=== PATIENT | male | born 1970 | race Caucasian/White ===

== ENCOUNTER 2018-02-05 05:14 | Emergency (ER) | payer SELFPAY ==
[~2018-02-05] VITALS: Ht 167.6 cm; Wt 81.8 kg
[2018-02-05] MEDS ORDERED: ALBUTEROL SULFATE 2.5 MG/0.5 ML NEB SOLUTION NEB ONE ×2 (05:15→06:30)
[2018-02-05] MEDS ORDERED: IPRATROPIUM BROMIDE 0.5 MG/2.5 ML NEB SOLUTION NEB ONE ×2 (05:15→06:30)
[2018-02-05] MEDS ORDERED: ALBU8HFA IH (05:17)
[2018-02-05] MEDS ORDERED: ALBUTEROL SULFATE HFA 90 MCG/PUFF 8 GM INHALER IH ONE (06:30)
[2018-02-05] MEDS ORDERED: PredniSONE 20 MG TABLET PO ONE (06:30)
[2018-02-05 07:20] VITALS: BP 125/75
== END 2018-02-05 07:30 | disposition home or self-care (01) ==
LOC: EMS 05:16
DX: J44.9 Chronic obstructive pulmonary disease, unspecified (principal); F17.210 Nicotine dependence, cigarettes, uncomplicated
CPT/HCPCS: 94640; 99284; J7512; J3535